=== PATIENT | female | born 1975 ===

== ENCOUNTER 2024-06-22 06:28 | Day surgery (SDC) | payer OTHER ==
[2024-06-15 08:09] LABS: HEMATOCRIT 37.4 % (36.0-45.00); HEMOGLOBIN 13.2 g/dL (12.0-15.00); MEAN CELL VOLUME 88.1 fL (80.00-100.00); MEAN CORPUSCULAR HEMOGLOBIN 31.1 pg (27.00-32.0); MEAN CORPUSCULAR HGB CONC 35.4 g/dl (32.0-36.0); PLATELET COUNT 406 K/uL (150-450); RED BLOOD COUNT 4.25 M/uL (4.00-6.00); RED CELL DISTRIBUTION WIDTH 13.6 % (11.5-14.5)
[2024-06-15 08:09] LABS: URINE APPEARANCE Clear; URINE BILIRRUBIN Negative (NEGATIVE); URINE BLOOD Negative; URINE COLOR Yellow; URINE GLUCOSE Negative (NEGATIVE); URINE KETONE Negative (NEGATIVE); URINE LEUKOCYTE Negative; URINE NITRATE Negative; URINE PROTEIN Negative (NEGATIVE); URINE UROBILINOGEN 0.2 E.U./dl
[2024-06-15 08:12] LABS: URINE BACTERIA 686.5 uL (0.0-1933); URINE EPITHELIAL CELLS 73.7 uL (0.0-38.8); URINE RBC 4.8 uL (0.0-20.8); URINE WBC 13.9 uL (0.0-23.2)
[2024-06-15 08:33] LABS: INR 1.02; PARTIAL THROMBOPLASTIN TIME 32.1 SECONDS (22.0-34.0); PROTHROMBIN TIME 11.1 SECONDS (9.0-11.5)
[2024-06-15 08:41] LABS: ALBUMIN 4.4 gm/dL (3.4-5.0); BILIRUBIN TOTAL 0.54 mg/dL (0.3-1.2); CALCIUM 10.1 mg/dL (8.5-10.1); CREATININE SERUM 0.63 mg/dL (0.55-1.02); GFR 100.86; GLOBULINA 4.1 G/DL (2.4-3.5); POTASSIUM 4.42 mEq/L (3.5-5.1); TOTAL PROTEIN 8.5 gm/dL (6.4-8.2)
[2024-06-15 08:48] VITALS: BP 150/90
[~2024-06-22] VITALS: Ht 167.6 cm; Wt 92.1 kg
[~2024-06-22 06:28] MED LIST: NORVASC5 MG PO; TRICOR145 MG PO; [UNRECOGNIZED DRUG - OTHER] PO
[2024-06-22] MEDS ORDERED: POVIDONE-IODINE 118 ML BOTT TOP ONE (09:30)
[2024-06-22] MEDS ORDERED: CEFAZOLIN SODIUM 1,000 MG VIAL ONE (09:40)
[2024-06-22] MEDS ORDERED: MORGIDOX100 MG PO (11:20)
[2024-06-22] MEDS ORDERED: IBU600 MG PO (11:20)
== END 2024-06-22 15:15 | disposition home or self-care (01) ==
LOC: CIR.AMB 06:28
PROVIDERS: ATTEND Obstetrics & Gynecology
DX: D25.0 Submucous leiomyoma of uterus (principal); N92.0 Excessive and frequent menstruation with regular cycle; N84.0 Polyp of corpus uteri; I10 Essential (primary) hypertension